=== PATIENT | male | born 1970 | race African-American/Black ===

== ENCOUNTER → 2020-12-10 | Outpatient (CLI) | payer OTHER ==
--- NOTE | 2020-12-10 11:58 | RAD ---
EXAM: AP, lateral and sunrise views of bilateral knees DATE: 12/10/2020 9:32 AM INDICATION: Reason: CHRONIC KNEE PAIN IN BOTH KNEES, UNABLE TO BEND / Spl. Instructions: / History: COMPARISON: No Prior FINDINGS: Right knee: No acute fracture or dislocation. Small right knee joint effusion. Mild medial compartment joint spac e narrowing with small associated osteophytes. Neutral patellar tracking. Left knee: No evidence of acute fracture or dislocation. Moderate left knee joint effusion. Joint spaces are brooklynn ssly preserved without significant proliferative change. Incidentally noted bipartite patella. Neutra l patellar tracking. IMPRESSION: 1. Moderate right knee joint osteoarthritis. 2. Left knee joint spaces are preserved without proliferative change 3. Bipartite patella left knee. Electronically signed by: Fadi Aquino MD (12/10/2020 11:56 AM) [facility]
== END ==
LOC: RAD 09:28
PROVIDERS: ATTEND Physician Assistant
DX: M17.11 Unilateral primary osteoarthritis, right knee (principal); M25.462 Effusion, left knee; G89.29 Other chronic pain
CPT/HCPCS: 73560; 73565